=== PATIENT | male | born 1940 | race Caucasian/White ===

== ENCOUNTER 2022-03-09 15:19 | Inpatient (IN) ==
[2022-03-09 16:05] LABS: Hematocrit 44 % (42-52); Hemoglobin 14.1 g/dL (14.0-18.0); Mean Corpuscular HGB Conc 32 g/dL (31-36); Mean Corpuscular Hemoglobin 31 pg (27-31); Mean Corpuscular Volume 95 fL (80-94); Mean Platelet Volume 9.5 fL (7.4-10.4); Platelet Count 329 10^3/uL (150-450); Red Blood Count 4.62 10^6 /uL (4.18-5.48); Red Cell Distribution Width 14 % (10-15); White Blood Count 11.9 10^3/uL (3.5-10.8)
[2022-03-09 16:14] LABS: Activated Partial Thrombo Time 31.6 seconds (26.0-38.0); INR 0.96 (0.86-1.15)
[2022-03-09 16:29] LABS: High Sens Troponin Baseline 28 pg/mL (<20)
[2022-03-09 16:35] LABS: PO2 Arterial 169 mmHg (80-100)
[2022-03-09 16:43] LABS: ABS Basophils 0.1 10^3/ul (0-0.2); ABS Lymphocytes 0.7 10^3/ul (1.0-4.8); ABS Monocytes 0.6 10^3/ul (0-0.8); ABS Neutrophils 10.5 10^3/ul (1.5-7.7); Lymphocyte % 5.9 %
[2022-03-09 16:43] LABS: PCO2 Arterial <20 mmHg (35-45)
[2022-03-09] MEDS ORDERED: Lactated Ringers 1000 ml BAG 1,000 ML IV ONE (16:44)
[2022-03-09 16:55] LABS: ALT 26 U/L (7-52); AST 21 U/L (13-39); Albumin 4.1 g/dL (3.2-5.2); Alkaline Phosphatase 88 U/L (35-149); Blood Urea Nitrogen 29 mg/dL (6-24); C Reactive Protein 1.47 mg/L (<8.01); Calcium 9.2 mg/dL (8.6-10.3); Chloride 98 mmol/L (101-111); Creatine Kinase 149 U/L (10-223); Globulin 2.1 g/dL (2-4); Glucose 497 mg/dL (70-100); Potassium 4.3 mmol/L (3.5-5.0); Sodium 135 mmol/L (135-145); Total Protein 6.2 g/dL (6.4-8.9)
[2022-03-09 16:57] LABS: CO2 Carbon Dioxide < 7 mmol/L (22-32)
[2022-03-09] MEDS ORDERED: Dextrose 50% Syringe 50 ml 25 GM/50 ML SYRINGE IV PUSH PRN ×2 (17:02→17:38)
[2022-03-09] MEDS ORDERED: Piperacillin/Tazobac ADVAN 3.375 GM in NS 0.9% 100 ml BAG 100 ML IV ONE (17:03)
[2022-03-09 17:37] LABS: Urine Appearance Cloudy; Urine Bilirubin Negative (Negative); Urine Blood 2+ (Negative); Urine Color Yellow; Urine Glucose 3+(>=500 mg/dL) (Negative); Urine Ketones 2+ (Negative); Urine Nitrite Negative (Negative); Urine Protein 1+(30 mg/dL) (Negative); Urine Urobilinogen Negative (Negative)
[2022-03-09] MEDS ORDERED: NORMOSOL-R pH 7.4 1000 mL BAG 1,000 ML IV ONE (17:38)
[2022-03-09 17:42] LABS: Urine Bacteria Absent (Absent); Urine Red Blood Cell 1+(3-5/hpf) (Absent); Urine Squamous Epithelial Cell Present (Absent); Urine White Blood Cell Trace(0-5/hpf) (Absent)
[2022-03-09 17:45] LABS: High Sensitivity Troponin 1 Hr 28 pg/mL (<20)
[2022-03-09] MEDS ORDERED: Insulin Infusion 100unit/100mL 100 UNIT/100 ML BAG IV SCH ×2 (18:00)
[2022-03-09 18:06] LABS: Alcohol, S < 13 mg/dL (<13)
[2022-03-09 18:31] LABS: Osmolality Serum 335 mOsm/kg (275-295)
[2022-03-09] MEDS ORDERED: Zosyn per Pharmacy NOTE FOLLOW UP SCH (19:00)
[2022-03-09] MEDS ORDERED: NORMOSOL-R pH 7.4 1000 mL BAG 1,000 ML IV SCH (19:00)
[2022-03-09 19:05] LABS: Urine Benzodiazepine Screen None Detected (None Detect); Urine Cannabinoids Screen None Detected (None Detect); Urine Opiates Screen None Detected (None Detect)
[2022-03-09 20:47] LABS: Glucose Confirmatory 483 mg/dL (70-100)
[2022-03-09 21:33] LABS: Glucose Confirmatory 441 mg/dL (70-100)
[2022-03-09 21:39] LABS: Blood Urea Nitrogen 31 mg/dL (6-24); Calcium 8.9 mg/dL (8.6-10.3); Chloride 102 mmol/L (101-111); Glucose 468 mg/dL (70-100); Sodium 136 mmol/L (135-145)
[2022-03-09 21:51] LABS: CO2 Carbon Dioxide < 7 mmol/L (22-32)
[2022-03-09 21:55] LABS: PO2 Arterial 135 mmHg (80-100)
[2022-03-09 22:02] LABS: PCO2 Arterial <20 mmHg (35-45)
[2022-03-09] MEDS: ZOSYN 3.375 GM Q8H per EXTENDED INFUSION IV SCH (22:33)
[2022-03-09] MEDS: Heparin 5000 UNITS/ML 1 mL VIAL SUBCUT SCH (22:39)
[2022-03-09] MEDS ORDERED: D5W 1/2 NS w/KCL 20 MEQ IVFLUID 1000 ML IV SCH (23:00)
[2022-03-09 23:29] LABS: Blood Urea Nitrogen 31 mg/dL (6-24); Calcium 9.1 mg/dL (8.6-10.3); Chloride 104 mmol/L (101-111); Glucose 344 mg/dL (70-100); Potassium 3.8 mmol/L (3.5-5.0); Sodium 139 mmol/L (135-145); eGFR CKD-EPI 46.3 (>60)
[2022-03-09 23:35] LABS: CO2 Carbon Dioxide < 7 mmol/L (22-32)
[2022-03-10] MEDS: KCL 20 MEQ/100 ML IVPREMIX 20 MEQ/100 ML BAG IV SCH ×6 (00:27→17:00)
[2022-03-10] MEDS ORDERED: D5W 1/2 NS 1000 ml BAG 1,000 ML IV SCH ×2 (01:00→08:17)
[2022-03-10 03:53] LABS: Calcium 9.3 mg/dL (8.6-10.3)
[2022-03-10 03:58] LABS: eGFR CKD-EPI 50.7 (>60)
[2022-03-10 05:54] LABS: PCO2 Arterial 35 mmHg (35-45); PO2 Arterial 112 mmHg (80-100)
[2022-03-10 06:34] LABS: Hematocrit 42 % (42-52); Hemoglobin 14.2 g/dL (14.0-18.0); Mean Corpuscular HGB Conc 34 g/dL (31-36); Mean Corpuscular Hemoglobin 31 pg (27-31); Mean Corpuscular Volume 91 fL (80-94); Mean Platelet Volume 9.3 fL (7.4-10.4); Platelet Count 247 10^3/uL (150-450); Red Blood Count 4.65 10^6 /uL (4.18-5.48); Red Cell Distribution Width 13 % (10-15); White Blood Count 15.5 10^3/uL (3.5-10.8)
[2022-03-10 06:40] LABS: ABS Basophils 0.1 10^3/ul (0-0.2); ABS Lymphocytes 0.8 10^3/ul (1.0-4.8); ABS Neutrophils 13.6 10^3/ul (1.5-7.7); Eosinophil % 0.3 %; Lymphocyte % 5.1 %
[2022-03-10] MEDS: ZOSYN 3.375 GM Q8H per EXTENDED INFUSION IV SCH ×3 (07:04→21:53)
[2022-03-10] MEDS: Heparin 5000 UNITS/ML 1 mL VIAL SUBCUT SCH ×3 (07:04→21:53)
[2022-03-10 07:29] LABS: Calcium 9.4 mg/dL (8.6-10.3); eGFR CKD-EPI 54.5 (>60)
[2022-03-10] MEDS ORDERED: Insulin Infusion 100unit/100mL 100 UNIT/100 ML BAG IV SCH ×3 (07:38→11:15)
[2022-03-10 09:31] LABS: Magnesium 1.6 mg/dL (1.9-2.7)
[2022-03-10] MEDS ORDERED: Magnesium Sulf 4 GM/100 ML IV 4,000 MG/100 ML BAG IVPB ONE (09:50)
[2022-03-10 11:05] LABS: Potassium 3.1 mmol/L (3.5-5.0); eGFR CKD-EPI 88.1 (>60)
[2022-03-10 11:29] LABS: Calcium 6.3 mg/dL (8.6-10.3)
[2022-03-10] MEDS ORDERED: Sodium Chloride CONC. 4 MEQ/ML 77 MEQ in D10W 1000 ml BAG 1,000 ML IV SCH ×2 (12:30→18:28)
[2022-03-10 15:04] LABS: Blood Urea Nitrogen 21 mg/dL (6-24); CO2 Carbon Dioxide 23 mmol/L (22-32); Calcium 8.9 mg/dL (8.6-10.3); Chloride 109 mmol/L (101-111); Glucose 209 mg/dL (70-100); Sodium 136 mmol/L (135-145); eGFR CKD-EPI 65.2 (>60)
[2022-03-10 15:24] LABS: Anion Gap 4 mmol/L (2-11)
[2022-03-10] MEDS: Insulin GLARGINE 100 un/ml 10 ml VIAL SUBCUT ONE ×2 (16:29→16:30)
[2022-03-10 18:12] LABS: Calcium 8.1 mg/dL (8.6-10.3); eGFR CKD-EPI 75.6 (>60)
[2022-03-10 18:26] LABS: Potassium 3.5 mmol/L (3.5-5.0)
[2022-03-10] MEDS ORDERED: Potassium Chlor 20 meq TAB.ER PO ONE (18:47)
[2022-03-10] MEDS ORDERED: Dextrose 50% Syringe 50 ml 25 GM/50 ML SYRINGE IV PUSH PRN (18:50)
[2022-03-10] MEDS: NORMOSOL-R pH 7.4 1000 mL BAG 1,000 ML IV SCH (20:45)
[2022-03-10 22:32] LABS: Calcium 8.7 mg/dL (8.6-10.3); Potassium 4.3 mmol/L (3.5-5.0); eGFR CKD-EPI 66.6 (>60)
[2022-03-11] MEDS ORDERED: Insulin GLARGINE 100 un/ml 10 ml VIAL SUBCUT ONE
[2022-03-11 03:00] LABS: Calcium 8.4 mg/dL (8.6-10.3); Potassium 4.1 mmol/L (3.5-5.0); eGFR CKD-EPI 68.9 (>60)
[2022-03-11] MEDS: ZOSYN 3.375 GM Q8H per EXTENDED INFUSION IV SCH ×3 (06:00→20:04)
[2022-03-11] MEDS: NORMOSOL-R pH 7.4 1000 mL BAG 1,000 ML IV SCH (06:13)
[2022-03-11] MEDS: Heparin 5000 UNITS/ML 1 mL VIAL SUBCUT SCH (06:13)
[2022-03-11 06:18] LABS: ABS Eosinophils 0.1 10^3/ul (0-0.6); ABS Monocytes 0.7 10^3/ul (0-0.8); ABS Neutrophils 7.5 10^3/ul (1.5-7.7); Eosinophil % 0.6 %; Hematocrit 39 % (42-52); Hemoglobin 13.1 g/dL (14.0-18.0); Lymphocyte % 10.4 %; Mean Corpuscular HGB Conc 34 g/dL (31-36); Mean Corpuscular Hemoglobin 31 pg (27-31); Mean Corpuscular Volume 93 fL (80-94); Mean Platelet Volume 9.4 fL (7.4-10.4); Platelet Count 179 10^3/uL (150-450); Red Blood Count 4.18 10^6 /uL (4.18-5.48); Red Cell Distribution Width 14 % (10-15); White Blood Count 9.3 10^3/uL (3.5-10.8)
[2022-03-11 06:41] LABS: Calcium 8.5 mg/dL (8.6-10.3); Potassium 4.2 mmol/L (3.5-5.0); eGFR CKD-EPI 75.6 (>60)
[2022-03-11] MEDS ORDERED: Insulin GLARGINE 100 un/ml 10 ml VIAL SUBCUT SCH (09:00)
[2022-03-11 10:47] LABS: TSH Ultra Thyroid Stim Horm 1.06 mcIU/mL (0.34-5.60)
[2022-03-11] MEDS: Enoxaparin 40 MG/0.4 ML SYR SUBCUT SCH (12:04)
[2022-03-12] MEDS: ZOSYN 3.375 GM Q8H per EXTENDED INFUSION IV SCH (04:22)
[2022-03-12 06:14] LABS: ABS Eosinophils 0.2 10^3/ul (0-0.6); ABS Lymphocytes 1.3 10^3/ul (1.0-4.8); ABS Monocytes 0.6 10^3/ul (0-0.8); Eosinophil % 2.7 %; Hematocrit 33 % (42-52); Hemoglobin 11.9 g/dL (14.0-18.0); Lymphocyte % 21.2 %; Mean Corpuscular HGB Conc 36 g/dL (31-36); Mean Corpuscular Hemoglobin 32 pg (27-31); Mean Corpuscular Volume 89 fL (80-94); Platelet Count 159 10^3/uL (150-450); Red Blood Count 3.77 10^6 /uL (4.18-5.48); Red Cell Distribution Width 13 % (10-15); White Blood Count 6.1 10^3/uL (3.5-10.8)
[2022-03-12 06:42] LABS: Calcium 8.5 mg/dL (8.6-10.3); Magnesium 1.5 mg/dL (1.9-2.7); Potassium 4.3 mmol/L (3.5-5.0); eGFR CKD-EPI 75.6 (>60)
[2022-03-12] MEDS ORDERED: Magnesium Sulf 4 GM/100 ML IV 4,000 MG/100 ML BAG IVPB ONE (09:00)
[2022-03-12] MEDS ORDERED: Insulin GLARGINE 100 un/ml 10 ml VIAL SUBCUT SCH (09:00)
[2022-03-12] MEDS: Enoxaparin 40 MG/0.4 ML SYR SUBCUT SCH (10:16)
[2022-03-12 18:30] LABS: UR Microalbumin (mg/L) 27.3 mg/L; Urine Creatinine 21.57 mg/dL; Urine Microalbumin/Creatinine 126.5 (<31)
[2022-03-13 06:14] LABS: Hematocrit 38 % (42-52); Hemoglobin 13.2 g/dL (14.0-18.0); Mean Corpuscular HGB Conc 35 g/dL (31-36); Mean Corpuscular Hemoglobin 31 pg (27-31); Mean Corpuscular Volume 90 fL (80-94); Platelet Count 176 10^3/uL (150-450); Red Blood Count 4.24 10^6 /uL (4.18-5.48); Red Cell Distribution Width 13 % (10-15)
[2022-03-13 06:46] LABS: Calcium 9.1 mg/dL (8.6-10.3); Magnesium 1.8 mg/dL (1.9-2.7); Phosphorus 3.4 mg/dL (2.5-5.0); Potassium 4.2 mmol/L (3.5-5.0); eGFR CKD-EPI 79.4 (>60)
[2022-03-13] MEDS ORDERED: Magnesium Sulfate IV 3 GM in NS 0.9% 100 ml BAG 100 ML IVPB ONE (06:57)
[2022-03-13] MEDS ORDERED: Magnesium Sulfate 2 gm BAG 2 GM/50 ML BAG IVPB ONE (06:58)
[2022-03-13] MEDS ORDERED: Insulin GLARGINE 100 un/ml 10 ml VIAL SUBCUT SCH ×2 (09:00)
[2022-03-13] MEDS: Enoxaparin 40 MG/0.4 ML SYR SUBCUT SCH (10:32)
[2022-03-13 15:09] VITALS: BP 119/66
== END 2022-03-13 16:30 | disposition swing bed (61) | DRG 637 ==
LOC: ED 15:19 → EDHOLD 18:05 → SUATTDRO 18:05 → ICU 20:03 → MEDTELE 03-11 15:06
PROVIDERS: ADMIT Nurse Practitioner Family; ATTEND Internal Medicine